=== PATIENT | female | born 1995 | race Caucasian/White ===

== ENCOUNTER 2019-04-23 11:04 | Emergency (ER) | payer OTHER, SELFPAY ==
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
[2019-04-23 11:19] VITALS: BP 114/74; PULSE 88; RESP 18; TEMP 36.8; O2SAT 100
[2019-04-23 11:46] LABS: Basophils Percent Auto 0.3 % (0.2-1.2); Eosinophils Absolute Auto 0.1 K/mm3 (0-0.3); Eosinophils Percent Auto 1.4 % (0-4.4); Hematocrit 40.8 % (37.0-47.0); Hemoglobin 13.3 g/dL (12.0-15.0); Immature Granulocyte Absolute 0.01 K/mm3 (0.00-0.031); Immature Granulocyte Percent A 0.2 % (0-0.5); Lymphocytes Absolute Auto 1.48 K/mm3 (0.9-3.2); Lymphocytes Percent Auto 25.5 % (18.3-44.2); Mean Corpuscular HGB Conc 32.6 g/dl (32-36); Mean Corpuscular Volume 95.1 fl (80-100); Mean Platelet Volume 9.5 fl (7.4-10.4); Monocytes Absolute Auto 0.5 K/mm3 (0.1-0.6); Monocytes Percent Auto 7.7 % (2.6-8.5); Neutrophils Absolute Auto 3.8 K/mm3 (1.3-6.7); Neutrophils Percent Auto 64.9 % (45.5-73.1); Platelet Count Result 369 k/mm3 (150-375); Red Blood Count 4.29 M/mm3 (4.2-5.4); Red Cell Distribution Width 13.3 % (11.5-14.5); White Blood Count 5.8 K/mm3 (4.5-10.0)
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
[2019-04-23 11:59] LABS: Alanine Aminotransferase 17 U/L (4-35); Albumin Level 4.8 g/dL (3.5-5.1); Alkaline Phosphatase 66 U/L (38-126); Aspartate Amino Transferase 25 U/L (14-36); Bilirubin,Total 0.3 mg/dL (0.2-1.3); Blood Urea Nitrogen 10 mg/dL (7-17); Calcium 9.2 mg/dL (8.4-10.2); Carbon Dioxide 28 mmol/L (22-30); Chloride 102 mmol/L (98-107); Estimated CRCL calculation 91 ml/min; Estimated Glomerular Filt Rate > 60; Glucose 88 mg/dL (65-105); Sodium 141 mmol/L (137-145)
[2019-04-23 12:00] VITALS: RESP 14; O2SAT 99
[2019-04-23 12:43] LABS: Add Urine Microscopic? YES; Appearance Urine Cloudy (Clear); Bacteria Urine Trace /hpf; Bilirubin Urine Negative (Negative); Blood Urine Negative (Negative); Color Urine Straw (Yellow); Glucose Urine UA Negative (Negative); Ketones Urine Negative (Negative); Leukocyte Esterase Ur Negative LEU/UL (Negative); Mucus Urine Rare /lpf; Nitrate Urine Negative (Negative); Protein Urine Negative (Negative); RBC Urine 0-2 /hpf (0-2); Specific Grav Ur 1.017 (1.001-1.035); Squamous Epithelial Cell Urine Few /hpf (Few); Urobilinogen Urine Negative mg/dL (<2.0); WBC Urine 0-3 /hpf
[2019-04-23 13:33] VITALS: BP 110/65; PULSE 62; RESP 12; O2SAT 98
== END 2019-04-23 13:41 | disposition home or self-care (01) ==
PROVIDERS: Emergency Medicine Emergency Medical Services; Emergency Provider Emergency Medicine; PCP Family Medicine
DX: S16.1XXA Strain of muscle, fascia and tendon at neck level, initial encounter (principal); S20.219A Contusion of unspecified front wall of thorax, initial encounter; S80.12XA Contusion of left lower leg, initial encounter; S80.11XA Contusion of right lower leg, initial encounter; V44.5XXA Car driver injured in collision with heavy transport vehicle or bus in traffic accident, initial encounter
CPT/HCPCS: 36415; 71260; 72125; 73562; 74177; 80053; 81001; 81025; 85025; 96374; 99284; J0131; Q9967

== ENCOUNTER 2020-07-03 16:32 | Emergency (ER) | payer OTHER, SELFPAY ==
[2020-07-03] VITALS (13 sets, daily range): BP systolic 90–122; BP diastolic 58–84; PULSE 50–81; RESP 12–22; TEMP 36.5; O2SAT 95–100
--- NOTE | ~2020-07-03 | XR_ITS ---
EXAMINATION: XR chest 2V DATE: 07/03/2020 17:17 INDICATION: Midline chest pain TECHNIQUE: PA and lateral views of the chest were obtained. COMPARISON: Chest CT dated 04/23/2019 FINDINGS: The lungs are clear with no focal airspace opacities, pulmonary edema, pleural effusion or pneumothor ax. The cardiomediastinal silhouette is normal. Mild pectus excavatum. IMPRESSION: 1. No acute cardiopulmonary disease. Reviewed, dictated and finalized at location A.
--- NOTE | 2020-07-03 16:43 | ECG_ITS ---
Measurements Intervals [place] Rate: 67 P: 61 WV: 196 QRS: 77 QRSD: 81 T: 52 QT: 376 QTc: 397 Interpretive Statements SINUS RHYTHM WITH SINUS ARRHYTHMIA INCOMPLETE RIGHT BUNDLE BRANCH BLOCK BORDERLINE ECG Electronically Signed On 07-03-2020 20:33:03 CDT by Sandeep Douglas D.O.
[2020-07-03 17:27] LABS: Basophils Percent Auto 0.2 % (0.2-1.2); Eosinophils Absolute Auto 0.1 K/mm3 (0-0.3); Eosinophils Percent Auto 1.6 % (0-4.4); Hematocrit 40.7 % (37.0-47.0); Hemoglobin 13.3 g/dL (12.0-15.0); Immature Granulocyte Absolute 0.01 K/mm3 (0.00-0.031); Immature Granulocyte Percent A 0.2 % (0-0.5); Lymphocytes Absolute Auto 1.41 K/mm3 (0.9-3.2); Lymphocytes Percent Auto 25.1 % (18.3-44.2); Mean Corpuscular HGB Conc 32.7 g/dl (32-36); Mean Corpuscular Hemoglobin 31.3 pg (26-34); Mean Corpuscular Volume 95.8 fl (80-100); Mean Platelet Volume 9.7 fl (7.4-10.4); Monocytes Absolute Auto 0.4 K/mm3 (0.1-0.6); Monocytes Percent Auto 6.4 % (2.6-8.5); Neutrophils Absolute Auto 3.7 K/mm3 (1.3-6.7); Neutrophils Percent Auto 66.5 % (45.5-73.1); Platelet Count Result 318 k/mm3 (150-375); Red Blood Count 4.25 M/mm3 (4.2-5.4); Red Cell Distribution Width 13.2 % (11.5-14.5); White Blood Count 5.6 K/mm3 (4.5-10.0)
--- NOTE | 2020-07-03 17:33 | ED.CHESTPAIN ---
HPI - Chest Pain General Chief Complaint: Chest Pain Stated Complaint: CP x 1 1/2 months Time Seen by Provider: 07/03/20 17:25 Source: patient and RN notes reviewed Mode of arrival: ambulatory Limitations: no limitations History of Present Illness HPI narrative: This is a 24 year old female who presents for an evaluation of midsternal chest pain. Her pain has been present intermittently. She states she feels it in the morning when she wakes up , and it resolves after several minutes. She will continue to have small episodes through out the day. She describes the pain as tightness. She states trying roll her shoulders backwards makes her pain worse. She denies any trauma or strenuous exercise. She is unsure if she has shortness of breath. She denies cough, fever, nausea, vomiting. She has not taken anything for pain. Pain does not radiate. Pain is 3/10. complaint: chest pain Onset (ago): minute(s) Timing of current episode: episodic Prior episodes: Yes Pain radiation: none Quality: tightness Relieving factors: nothing Related Data Allergies Allergy/AdvReac Type Severity Reaction Status Date / Time No Known Allergies Allergy Unknown Verified 04/23/19 11:22 Review of Systems Review of Systems: All systems reviewed & are unremarkable except as noted in HPI and below Constitutional: Constitutional: Denies chills and Denies fever(s) Cardiovascular: Cardiovascular: Reports chest pain and Denies radiating jaw, neck or arm pain Respiratory: Respiratory: Denies chest congestion, Denies cough, Reports dyspnea and Denies wheezing Gastrointestinal: Gastrointestinal: Denies abdominal pain, Denies diarrhea, Denies nausea and Denies vomiting [facility] Past Medical History Medical History (Updated 07/03/20 @ 21:02 by Arielle Frost MD) No significant medical problems Surgical History Surgical History (Updated 07/03/20 @ 17:34 by Arielle Frsot MD) No pertinent past surgical history Social History Social History (Updated 07/03/20 @ 17:35 by Arielle Frost MD) Tobacco type: e-cigarettes/vaping Alcohol intake: current Alcohol use details: social Substance use: never Gender identity (if verbalized by the patient): Female Exam Const: General: no acute distress and alert Orientation/consciousness: patient oriented x3 Eyes: EOM: EOMs intact bilaterally Chest: Chest palpation & inspection: tenderness Resp: Effort & Inspection: normal respiratory effort and no retractions Auscultation: clear to auscultation bilaterally Cardio: Rate: regular rate Rhythm: regular rhythm Heart sounds: no murmurs GI: GI Palp: Yes Soft to palpation, No Tenderness to palpation present (GI) and No Guarding due to palpation present (GI) Auscultation: normal bowel sounds Skin: General skin exam: normal color Rashes: no rashes Neuro: General: patient oriented x3, moves all extremities and CN's II-XI intact bilaterally Course Reevaluation(s) Reevaluation #1: I have discussed with patient that labs are unremarkable. She was found to have mild pectus excavatum. Her pain does sound muscular. I discussed she will need to follow up with PCP Date: 07/03/20 Time: 21:01 Vital Signs Vital signs: Vital Signs Temperature 97.7 F 07/03/20 16:57 Pulse Rate 63 07/03/20 16:57 Respiratory Rate 16 07/03/20 16:57 Blood Pressure 109/63 07/03/20 16:57 Pulse Oximetry 100 07/03/20 16:57 Temperature 97.7 F 07/03/20 16:57 Pulse Rate 71 07/03/20 19:16 Respiratory Rate 12 07/03/20 19:16 Blood Pressure 113/84 07/03/20 19:16 Pulse Oximetry 100 07/03/20 19:15 MDM - Chest Pain Lab Data Attestation: I reviewed the patient's lab results. Result diagrams: 07/03/20 17:07 07/03/20 17:07 Labs: Lab Results 07/03/20 07/03/20 07/03/20 Range/Units 17:07 17:07 17:07 WBC 5.6 (4.5-10.0) K/mm3 RBC 4.25 (4.2-5.4) M/mm3 Hgb 13.3 (12.0-15.0) g/dL
[2020-07-03 17:37] LABS: Partial Thromboplastin Time 32.7 SECONDS (22.3-36.8)
[2020-07-03 17:42] LABS: Anion Gap 6 mmol/L (8-16); Blood Urea Nitrogen 13 mg/dL (7-17); Calcium 9.2 mg/dL (8.4-10.2); Carbon Dioxide 30 mmol/L (22-30); Chloride 104 mmol/L (98-107); Estimated CRCL calculation 80 ml/min; Estimated Glomerular Filt Rate > 60; Glucose 78 mg/dL (65-105); Sodium 140 mmol/L (137-145)
[2020-07-03 17:49] LABS: Troponin I < 0.012 ng/mL (0.000-0.034)
[2020-07-03 17:51] LABS: D Dimer 0.27 ug/mL (<0.48)
[2020-07-03] MEDS: KETOROLAC 15 MG/ML VIAL (*BKC) IV PUSH (17:55)
[2020-07-03] MEDS: LACTATED RINGERS 1,000 ML 999 ML IV CONT (19:19)
[2020-07-03 20:52] LABS: Troponin I < 0.012 ng/mL (0.000-0.034)
== END 2020-07-03 21:24 | disposition home or self-care (01) ==
PROVIDERS: Emergency Medicine; Emergency Provider General Practice; PCP Family Medicine
DX: R07.89 Other chest pain (principal); F17.290 Nicotine dependence, other tobacco product, uncomplicated
CPT/HCPCS: 36415; 71046; 80048; 84484; 85025; 85380; 85610; 85730; 93005; 96361; 96374; 99284; J1885; J7120

== ENCOUNTER 2022-09-12 17:12 | Emergency (ER) | payer OTHER, SELFPAY ==
[2022-09-12 18:10] VITALS: BP 103/72; PULSE 90; RESP 16; TEMP 36.5; O2SAT 99
[2022-09-12 21:50] LABS: Amphetamine Screen Urine Negative (Negative); Barbiturate Screen Urine Negative (Negative); Benzodiazepines Screen Urine Negative (Negative); Cannabinoid Screen Urine Negative (Negative); Cocaine Screen Urine Negative (Negative); Methadone Screen Urine Negative (Negative); Opiate Screen Urine Negative (Negative); Phencyclidine Screen Urine Negative (Negative)
[2022-09-12 21:53] LABS: Basophils Percent Auto 0.5 % (0.2-1.2); Eosinophils Absolute Auto 0.1 K/mm3 (0-0.3); Eosinophils Percent Auto 0.9 % (0-4.4); Hematocrit 40.3 % (37.0-47.0); Hemoglobin 13.2 g/dL (12.0-15.0); Immature Granulocyte Absolute 0.01 K/mm3 (0.00-0.031); Immature Granulocyte Percent A 0.2 % (0-0.5); Lymphocytes Absolute Auto 1.66 K/mm3 (0.9-3.2); Lymphocytes Percent Auto 28.7 % (18.3-44.2); Mean Corpuscular HGB Conc 32.8 g/dl (32-36); Mean Corpuscular Hemoglobin 31.2 pg (26-34); Mean Corpuscular Volume 95.3 fl (80-100); Mean Platelet Volume 9.1 fl (7.4-10.4); Monocytes Absolute Auto 0.5 K/mm3 (0.1-0.6); Monocytes Percent Auto 8.6 % (2.6-8.5); Neutrophils Absolute Auto 3.5 K/mm3 (1.3-6.7); Neutrophils Percent Auto 61.1 % (45.5-73.1); Platelet Count Result 344 k/mm3 (150-375); Red Blood Count 4.23 M/mm3 (4.2-5.4); Red Cell Distribution Width 13.7 % (11.5-14.5); White Blood Count 5.8 K/mm3 (4.5-10.0)
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
[2022-09-12 22:04] LABS: Ethanol < 10 mg/dL (<10)
[2022-09-12 22:06] LABS: Alanine Aminotransferase 31 U/L (6-35); Albumin Level 4.4 g/dL (3.5-5.1); Anion Gap 5 mmol/L (8-16); Aspartate Amino Transferase 38 U/L (14-36); Bilirubin,Total 0.5 mg/dL (0.2-1.3); Blood Urea Nitrogen 10 mg/dL (7-17); Calcium 8.6 mg/dL (8.4-10.2); Carbon Dioxide 26 mmol/L (22-30); Chloride 106 mmol/L (98-107); Estimated CRCL calculation 79 ml/min; Estimated Glomerular Filt Rate > 60; Glucose 82 mg/dL (65-110); Potassium 4.1 mmol/L (3.4-5.0); Sodium 137 mmol/L (137-145)
[2022-09-12 22:07] LABS: Alkaline Phosphatase 56 U/L (38-126)
[2022-09-12 22:13] VITALS: BP 115/77; PULSE 76; RESP 18; O2SAT 100
--- NOTE | 2022-09-12 22:25 | PC.NURSE ---
MADELIN called to see patient
[2022-09-12] MEDS: MECLIZINE HCL 25 MG TABLET PO (22:39)
--- NOTE | 2022-09-12 22:57 | PC.NURSE ---
Call for Help called. They state that they have no represenative to send atthis time
--- NOTE | 2022-09-13 01:30 | PC.NURSE ---
MEMS INTEGRATION ENGINEER at bedside with pt doing completing kit
[2022-09-13] MEDS: cefTRIAXone 1 GM VIAL 0.5 GM IM (02:27)
[2022-09-13] MEDS: metroNIDAZOLE 250 MG TABLET 500 MG PO (02:27)
[2022-09-13] MEDS: TETANUS,DIPHTHERIA,AC PERTUSSIS ADULT (0.5 ML) BOOSTRIX IM (02:28)
[2022-09-13] MEDS: ONDANSETRON HCL ODT 4 MG TABLET PO (02:28)
[2022-09-13] MEDS: RALTEGRAVIR 400 MG TABLET PO (02:29)
[2022-09-13] MEDS: EMTRICITABINE-TENOFOVIR 100 MG-150 MG TABLET 2 TAB PO (02:29)
[2022-09-13] MEDS: LIDOCAINE HCL 1% LOCAL INJ 10 ML VIAL (02:29)
[2022-09-13] MEDS: DOXYCYCLINE HYCLATE 100 MG TABLET PO (02:29)
[2022-09-13 03:49] LABS: INR 1.1; Prothrombin Time 14.9 Seconds (11.1-14.7)
[2022-09-13 03:54] LABS: Amorphous Sediment Urine Present; Appearance Urine Turbid (Clear); Bacteria Urine None Seen /hpf; Bilirubin Urine Negative (Negative); Blood Urine 3+ (Negative); Color Urine Dark Yellow (Yellow); Glucose Urine UA Negative (Negative); Ketones Urine Negative (Negative); Leukocyte Esterase Ur Negative LEU/UL (Negative); Nitrate Urine Negative (Negative); Non Pathogenic Casts 0-2; Protein Urine 1+ mg/dL (Negative); Specific Grav Ur 1.031 (1.001-1.035); Squamous Epithelial Cell Urine None seen /hpf (Few); WBC Urine 0-5 /hpf
[2022-09-13] MEDS: levonorgestreL 1.5 MG TABLET PO (03:54)
[2022-09-13 04:04] LABS: Add Urine Microscopic? YES
[2022-09-13 04:17] VITALS: BP 116/75; PULSE 80; RESP 18; O2SAT 100
[2022-09-13 04:36] LABS: HIV 1/2 Ab P24 Ag Result Negative (Negative)
[2022-09-13 08:26] LABS: Rapid Plasma Reagin Non-Reactive (NonReactive)
== END 2022-09-13 04:18 | disposition home or self-care (01) ==
PROVIDERS: Emergency Provider Emergency Medicine
DX: T76.21XA Adult sexual abuse, suspected, initial encounter (principal); S60.212A Contusion of left wrist, initial encounter; S60.211A Contusion of right wrist, initial encounter; Z23 Encounter for immunization; F17.219 Nicotine dependence, cigarettes, with unspecified nicotine-induced disorders; V49.9XXA Car occupant (driver) (passenger) injured in unspecified traffic accident, initial encounter
CPT/HCPCS: 36415; 80053; 80307; 81001; 81025; 85025; 85610; 85730; 86592; 86703; 87491; 87591; 87808; 90471; 90715; 96372; 99285; A9270; G0432; J0696